=== PATIENT | female | born 1960 | race Native Hawaiian/Other Pacific Islander ===

== ENCOUNTER 2019-04-22 12:37 | Emergency (ER) | payer SELFPAY ==
--- NOTE | 2019-04-22 12:45 | Emergency Department Report ---
Blank Doc - Documentation Documentation: 58-year-old female that presents with abdominal pain with n/v. This initial assessment/diagnostic orders/clinical plan/treatment(s) is/are subject to change based on patient's health status, clinical progression and re- assessment by fellow clinical providers in the ED. Further treatment and workup at subsequent clinical providers discretion. Patient/guardians urged not to elope from the ED as their condition may be serious if not clinically assessed and managed. Initial orders include: 1- Patient sent to [facility] for further evaluation and treatment 2- labs 3- UA
[2019-04-22 13:11] LABS: Basophils # (Auto) 0.1 K/mm3 (0.0-0.1); Eosinophils # (Auto) 0.2 K/mm3 (0.0-0.4); Hematocrit 39.2 % (30.3-42.9); Hemoglobin 13.8 gm/dl (10.1-14.3); Lymphocytes # (Auto) 1.9 K/mm3 (1.2-5.4); Lymphocytes % (Auto) 33.6 % (13.4-35.0); Mean Corpuscular HGB Conc 35 % (30-34); Mean Corpuscular Volume 91 fl (79-97); Monocytes # (Auto) 0.3 K/mm3 (0.0-0.8); Monocytes % (Auto) 5.2 % (0.0-7.3); Platelet Count 249 K/mm3 (140-440); Red Blood Count 4.33 M/mm3 (3.65-5.03); Red Cell Distribution Width 13.1 % (13.2-15.2)
[2019-04-22 13:21] LABS: INR 1.04 (0.87-1.13)
[2019-04-22 13:40] LABS: Alanine Aminotransferase 34 units/L (7-56); Albumin 4.2 g/dL (3.9-5); BUN/Creatinine Ratio 18; Blood Urea Nitrogen 9 mg/dL (7-17); Calcium 9.1 mg/dL (8.4-10.2); Hemolysis Index 11
[2019-04-22 13:49] LABS: Bilirubin,Urine NEG (Negative); Blood,Urine NEG (Negative); Color,Urine Straw (Yellow); Mucus,Urine FEW /HPF; Protein,Urine <15 mg/dL mg/dL (Negative); Urobilinogen,Urine < 2.0 mg/dL (<2.0); WBC,Urine < 1.0 /HPF (0.0-6.0)
[2019-04-22] MEDS ORDERED: ONDANSETRON 4 MG/2 ML INJ IV ONE (14:40)
[2019-04-22] MEDS ORDERED: SODIUM CHLORIDE 0.9% 1000 ML 1,000 ML IV ONE (14:40)
[2019-04-22] MEDS ORDERED: FAMOTIDINE 20 MG/2 ML INJ IV ONE (14:40)
--- NOTE | 2019-04-22 16:24 | Cat Scan Report ---
CT ABDOMEN AND PELVIS WITH CONTRAST HISTORY: MAIN: NVD diffuse abd pain COMPARISON: None. TECHNIQUE: Axial CT images were obtained through the abdomen and pelvis after 100 cc of Omnipaque 300 intravenously. Sagittal and coronal reformatted images. All CT scans at this location are performed using CT dose reduction for ALARA by means of automated exposure control. FINDINGS: CT ABDOMEN: Lung Bases: Clear. Liver: Mild diffuse fatty infiltration throughout the liver. No mass or enlargement. Biliary: No significant abnormality. Spleen: No significant abnormality. Unenlarged. Pancreas: No significant abnormality. Adrenals: No significant abnormality. Kidneys: No significant abnormality. Lymphatics: No lymphadenopathy. Vasculature: No significant abnormality. Bowel/Peritoneum: No significant abnormality. No free air. No free fluid. Normal appendix. CT PELVIS: : Hysterectomy changes are suspected. No pelvic cyst or mass. Osseous Structures: No significant abnormality. Additional Findings: Previous ventral wall hernia repair appears intact. IMPRESSION: No acute abdominal process is identified. Mild hepatic steatosis. Surgical changes as described. Signer Name: John Gregg Jr, MD Signed: 04/22/2019 4:20 PM Workstation Name: [id number]
--- NOTE | 2019-04-22 17:16 | Emergency Department Report ---
ED Abdominal Pain HPI - General Chief Complaint: GI Bleed Stated Complaint: ABD PAIN Time Seen by Provider: 04/22/19 12:44 Source: patient Mode of arrival: Ambulatory Limitations: No Limitations - History of Present Illness Initial Comments: Patient is a 58-year-old female who is presenting with nausea vomiting and abdominal pain. Patient says most of her abdominal pain is in the epigastrium however she has some generalized pain she states everywhere in her abdomen". The patient states that the pain started 3 days ago. She states she started having some nausea vomiting. The first episode of vomiting appeared to be food content but now she is having some streaks of blood in her vomit. Patient had episode of diarrhea as well but this is now resolved. Location: diffuse, epigastric Severity: moderate Severity scale (0 -10): 6 Quality: cramping Improves With: nothing Worsens With: nothing Associated Symptoms: nausea, vomiting, diarrhea (x1). denies: dysuria, hematochezia, melena, hematuria, anorexia - Related Data Previous Rx's Medication Instructions Recorded Last Taken Type Amitriptyline [Elavil] 10 mg PO QHS #30 tab NS 02/17/14 Unknown Rx Aspirin [Aspirin BABY CHEW TAB] 81 mg PO QDAY #20 tab.chew 02/17/14 Unknown Rx Butalb/Acetamin/Caff 50-325-40 1 each PO Q6H PRN #30 tablet NS 02/17/14 Unknown Rx [Fioricet] Simvastatin 10 mg PO QHS #30 tablet 02/17/14 Unknown Rx oxyCODONE /ACETAMINOPHEN [Percocet 1 tab PO Q6HR PRN #20 tablet 02/17/15 Unknown Rx 5/325] Dicyclomine [Bentyl] 20 mg PO QID #10 tablet 04/22/19 Unknown Rx Ondansetron [Zofran Odt] 4 mg PO Q8HR #10 tab.rapdis 04/22/19 Unknown Rx Pantoprazole [Protonix] 40 mg PO QDAY #30 tablet 04/22/19 Unknown Rx traMADoL [Ultram] 50 mg PO Q6HR PRN #12 tablet 04/22/19 Unknown Rx Allergies Allergy/AdvReac Type Severity Reaction Status Date / Time No Known Allergies Allergy Verified 02/15/14 09:51 ED Review of Systems ROS: Stated complaint: ABD PAIN Other details as noted in HPI Comment: All other systems reviewed and negative ED Past Medical Hx - Past Medical History Previous Medical History?: Yes Hx CVA: Yes (2013) Hx Diabetes: Yes Hx GERD: Yes Hx Headaches / Migraines: Yes - Surgical History Past Surgical History?: Yes Additional Surgical History: Hysterectomy - Social History Smoking Status: Never Smoker Substance Use Type: None - Medications Home Medications: Home Medications Medication Instructions Recorded Confirmed Last Taken Type Amitriptyline [Elavil] 10 mg PO QHS #30 tab NS 02/17/14 Unknown Rx Aspirin [Aspirin BABY CHEW TAB] 81 mg PO QDAY #20 tab.chew 02/17/14 Unknown Rx Butalb/Acetamin/Caff 50-325-40 1 each PO Q6H PRN #30 tablet NS 02/17/14 Unknown Rx [Fioricet] Simvastatin 10 mg PO QHS #30 tablet 02/17/14 Unknown Rx oxyCODONE /ACETAMINOPHEN [Percocet 1 tab PO Q6HR PRN #20 tablet 02/17/15 Unknown Rx 5/325] Dicyclomine [Bentyl] 20 mg PO QID #10 tablet 04/22/19 Unknown Rx Ondansetron [Zofran Odt] 4 mg PO Q8HR #10 tab.rapdis 04/22/19 Unknown Rx Pantoprazole [Protonix] 40 mg PO QDAY #30 tablet 04/22/19 Unknown Rx traMADoL [Ultram] 50 mg PO Q6HR PRN #12 tablet 04/22/19 Unknown Rx ED Physical Exam - General Limitations: No Limitations General appearance: alert, in no apparent distress - Head Head exam: Present: atraumatic, normocephalic - Eye Eye exam: Present: normal appearance, PERRL, EOMI - ENT ENT exam: Present: mucous membranes moist - Neck Neck exam: Present: normal inspection - Respiratory Respiratory exam: Present: normal lung sounds bilaterally. Absent: respiratory distress, wheezes, rales, rhonchi - Cardiovascular Cardiovascular Exam: Present: regular rate, normal rhythm, normal heart sounds. Absent: systolic murmur, diastolic murmur, rubs, gallop - GI/Abdominal GI/Abdominal exam: Present: soft, tenderness (diffuse), normal bowel sounds. Absent: distended, guarding, rebound - Rectal Rectal exam: Present: normal inspection, heme (-) stool - Extremities Exam Extremities exam: Present: normal inspection - Back Exam Back exam: Present: normal inspection - Neurological Exam Neurological exam: Present: alert, oriented X3 - Psychiatric Psychiatric exam: Present: normal affect, normal mood - Skin Skin exam: Present: warm, dry, intact, normal color. Absent: rash ED Course Vital Signs 04/22/19 12:45 Temperature 97.7 F Pulse Rate 72 Respiratory 18 Rate Blood Pressure 140/51 O2 Sat by Pulse 97 Oximetry ED Medical Decision Making - Lab Data Result diagrams: 04/22/19 12:57 04/22/19 12:57 Lab Results 04/22/19 04/22/19 04/22/19 Range/Units 12:57 12:57 12:57 WBC 5.6 (4.5-11.0) K/mm3 RBC 4.33 (3.65-5.03) M/mm3 Hgb 13.8 (10.1-14.3) gm/dl Hct 39.2 (30.3-42.9) % MCV 91 (79-97) fl MCH 32 (28-32) pg MCHC 35 H (30-34) % RDW 13.1 L (13.2-15.2) % Plt Count 249 (140-440) K/mm3 Lymph % (Auto) 33.6 (13.4-35.0) % [place] % (Auto) 5.2 (0.0-7.3) % Eos % (Auto) 3.0 (0.0-4.3) % Baso % (Auto) 1.0 (0.0-1.8) % Lymph # 1.9 (1.2-5.4) K/mm3 [place] # 0.3 (0.0-0.8) K/mm3 Eos # 0.2 (0.0-0.4) K/mm3 Baso # 0.1 (0.0-0.1) K/mm3 Seg Neutrophils % 57.2 (40.0-70.0) % Seg Neutrophils # 3.2 (1.8-7.7) K/mm3 PT 13.5 (12.2-14.9) Sec. INR 1.04 (0.87-1.13) APTT 33.0 (24.2-36.6) Sec. Sodium 143 (137-145) mmol/L Potassium 4.2 (3.6-5.0) mmol/L Chloride 104.0 (98-107) mmol/L Carbon Dioxide 24 (22-30) mmol/L Anion Gap 19 mmol/L BUN 9 (7-17) mg/dL Creatinine 0.5 L (0.7-1.2) mg/dL Estimated GFR > 60 ml/min BUN/Creatinine Ratio 18 % Glucose 140 H (65-100) mg/dL Calcium 9.1 (8.4-10.2) mg/dL Total Bilirubin 0.70 (0.1-1.2) mg/dL AST 25 (5-40) units/L ALT 34 (7-56) units/L Alkaline Phosphatase 97 (35-129) units/L Total Protein 7.7 (6.3-8.2) g/dL Albumin 4.2 (3.9-5) g/dL Albumin/Globulin Ratio 1.2 % Lipase 25 (13-60) units/L Urine Color (Yellow) Urine Turbidity (Clear) Urine pH (5.0-7.0) Ur Specific [place] (1.003-1.030) Urine Protein (Negative) mg/dL Urine Glucose (UA) (Negative) mg/dL Urine Ketones (Negative) mg/dL Urine Blood (Negative) Urine Nitrite (Negative) Urine Bilirubin (Negative) Urine Urobilinogen (<2.0) mg/dL Ur Leukocyte Esterase (Negative) Urine WBC (Auto) (0.0-6.0) /HPF Urine RBC (Auto) (0.0-6.0) /HPF U Epithel Cells (Auto) (0-13.0) /HPF Urine Mucus /HPF 04/22/19 Range/Units 13:21 WBC (4.5-11.0) K/mm3 RBC (3.65-5.03) M/mm3 Hgb (10.1-14.3) gm/dl Hct (30.3-42.9) % MCV (79-97) fl MCH (28-32) pg MCHC (30-34) % RDW (13.2-15.2) % Plt Count (140-440) K/mm3 Lymph % (Auto) (13.4-35.0) % [place] % (Auto) (0.0-7.3) % Eos % (Auto) (0.0-4.3) % Baso % (Auto) (0.0-1.8) % Lymph # (1.2-5.4) K/mm3 [place] # (0.0-0.8) K/mm3 Eos # (0.0-0.4) K/mm3 Baso # (0.0-0.1) K/mm3 Seg Neutrophils % (40.0-70.0) % Seg Neutrophils # (1.8-7.7) K/mm3 PT (12.2-14.9) Sec. INR (0.87-1.13) APTT (24.2-36.6) Sec. Sodium (137-145) mmol/L Potassium (3.6-5.0) mmol/L Chloride (98-107) mmol/L Carbon Dioxide (22-30) mmol/L Anion Gap mmol/L BUN (7-17) mg/dL Creatinine (0.7-1.2) mg/dL Estimated GFR ml/min BUN/Creatinine Ratio % Glucose (65-100) mg/dL Calcium (8.4-10.2) mg/dL Total Bilirubin (0.1-1.2) mg/dL AST (5-40) units/L ALT (7-56) units/L Alkaline Phosphatase (35-129) units/L Total Protein (6.3-8.2) g/dL Albumin (3.9-5) g/dL Albumin/Globulin Ratio % Lipase (13-60) units/L Urine Color Straw (Yellow) Urine Turbidity Clear (Clear) Urine pH 7.0 (5.0-7.0) Ur Specific [place] 1.006 (1.003-1.030) Urine Protein <15 mg/dl (Negative) mg/dL Urine Glucose (UA) Neg (Negative) mg/dL Urine Ketones Neg (Negative) mg/dL Urine Blood Neg (Negative) Urine Nitrite Neg (Negative) Urine Bilirubin Neg (Negative) Urine Urobilinogen < 2.0 (<2.0) mg/dL Ur Leukocyte Esterase Neg (Negative) Urine WBC (Auto) < 1.0 (0.0-6.0) /HPF Urine RBC (Auto) 2.0 (0.0-6.0) /HPF U Epithel Cells (Auto) 2.0 (0-13.0) /HPF Urine Mucus Few /HPF - Radiology Data CT ABDOMEN AND PELVIS WITH CONTRAST HISTORY: MAIN: NVD diffuse abd pain COMPARISON: None. TECHNIQUE: Axial CT images were obtained through the abdomen and pelvis after 100 cc of Omnipaque 300 intravenously. Sagittal and coronal reformatted images. All CT scans at this location are performed using CT dose reduction for ALARA by means of automated exposure control. FINDINGS: CT ABDOMEN: Lung Bases: Clear. Liver: Mild diffuse fatty infiltration throughout the liver. No mass or enlargement. Biliary: No significant abnormality. Spleen: No significant abnormality. Unenlarged. Pancreas: No significant abnormality. Adrenals: No significant abnormality. Kidneys: No significant abnormality. Lymphatics: No lymphadenopathy. Vasculature: No significant abnormality. Bowel/Peritoneum: No significant abnormality. No free air. No free fluid. Normal appendix. CT PELVIS: : Hysterectomy changes are suspected. No pelvic cyst or mass. Osseous Structures: No significant abnormality. Additional Findings: Previous ventral wall hernia repair appears intact. IMPRESSION: No acute abdominal process is identified. Mild hepatic steatosis. Surgical changes as described. Signer Name: John Gregg Jr, MD Signed: 04/22/2019 4:20 PM Workstation Name: [id number] - Medical Decision Making Patient was hydrated and given medications for symptomatic relief. Her nausea and pain have improved. Patient's CT is not showing any acute surgical abnormality. R studies are unremarkable. Patient likely is having a flareup of her gastritis. Patient will be started on meds and given GI for follow-up and the patient be discharged home. Critical care attestation.: If time is entered above; I have spent that time in minutes in the direct care of this critically ill patient, excluding procedure time. ED Disposition Clinical Impression: Gastritis Qualifiers: Gastritis type: unspecified gastritis Chronicity: acute Gastritis bleeding: with bleeding Qualified Code(s): K29.01 - Acute gastritis with bleeding Disposition: - TO HOME OR SELFCARE Is pt being admited?: No Does the pt Need Aspirin: No Condition: Stable Instructions: Gastritis (ED), Diet for Ulcers and Gastritis (ED) Referrals: [facility] [Provider Group] - 3-5 Days Time of Disposition: 17:17
[2019-04-22 17:35] VITALS: BP 124/60
== END 2019-04-22 17:34 | disposition home or self-care (01) ==
LOC: ED 12:37
DX: K29.00 Acute gastritis without bleeding (principal); E11.9 Type 2 diabetes mellitus without complications; K21.9 Gastro-esophageal reflux disease without esophagitis; G43.909 Migraine, unspecified, not intractable, without status migrainosus
CPT/HCPCS: 36415; 74177; 80053; 81001; 83690; 85025; 85610; 85730; 96361; 96374; 96375; 99284; J2405; J7030; Q9967

== ENCOUNTER 2020-02-01 14:31 | Emergency (ER) | payer SELFPAY ==
--- NOTE | 2020-02-01 16:50 | Emergency Department Report ---
Blank Doc - Documentation Documentation: 59-year-old female that presents with diarrhea, body aches, cough, chills, sub jective fever, with nausea and vomiting. This initial assessment/diagnostic orders/clinical plan/treatment(s) is/are subject to change based on patient's health status, clinical progression and re-assessment by fellow clinical providers in the ED. Further treatment and workup at subsequent clinical providers discretion. Patient/guardians urged not to elope from the ED as their condition may be serious if not clinically assessed and managed. Initial orders include: 1- Patient sent to [facility] for further evaluation and treatment 2- labs 3- CXR
[2020-02-01 17:14] LABS: Basophils % (Auto) 0.6 % (0.0-1.8); Eosinophils # (Auto) 0.2 K/mm3 (0.0-0.4); Hematocrit 39.9 % (30.3-42.9); Hemoglobin 13.9 gm/dl (10.1-14.3); Mean Corpuscular HGB Conc 35 % (30-34); Mean Corpuscular Volume 92 fl (79-97); Monocytes # (Auto) 0.3 K/mm3 (0.0-0.8); Monocytes % (Auto) 5.4 % (0.0-7.3); Platelet Count 231 K/mm3 (140-440); Red Blood Count 4.32 M/mm3 (3.65-5.03); Red Cell Distribution Width 13.3 % (13.2-15.2)
--- NOTE | 2020-02-01 17:22 | XRay Report ---
XR chest routine 2V INDICATION / CLINICAL INFORMATION: cough. COMPARISON: None available. FINDINGS: SUPPORT DEVICES: None. HEART / MEDIASTINUM: No significant abnormality. LUNGS / PLEURA: Lungs are clear. Costophrenic sulci are sharp. No pneumothorax. ADDITIONAL FINDINGS: No significant additional findings. IMPRESSION: 1. No acute findings. Signer Name: Dieter Matias MD Signed: 02/01/2020 5:18 PM Workstation Name: [id number]
[2020-02-01 17:25] LABS: Blood Urea Nitrogen 9 mg/dL (7-17); Hemolysis Index 6
[2020-02-01 17:27] LABS: BUN/Creatinine Ratio 13
[2020-02-01 19:01] LABS: Bacteria,Urine 1+ /HPF (Negative); Bilirubin,Urine NEG (Negative); Blood,Urine NEG (Negative); Color,Urine Yellow (Yellow); Mucus,Urine 3+ /HPF; Protein,Urine <15 mg/dL mg/dL (Negative); Urobilinogen,Urine < 2.0 mg/dL (<2.0)
--- NOTE | 2020-02-01 20:17 | Emergency Department Report ---
ED General Adult HPI - General Chief complaint: Upper Respiratory Infection Stated complaint: HEAD,DIARREHA,CHEST PAIN Time Seen by Provider: 02/01/20 16:48 Source: patient Mode of arrival: Ambulatory Limitations: No Limitations - History of Present Illness Initial comments: 59-year-old female presents to ED with headache, chills, nausea, diarrhea, body aches, burning to feet. Patient states her symptoms have been ongoing x1 month. Patient had a negative COVID-19 test on 12/22/2019. Patient reports her son, who lives with her, tested positive for COVID-19 01/12/2020. Patient states she had another test 4 days ago that was negative for COVID-19. Patient denies cough, shortness of breath. -: month(s) (1) Location: head, left, right, lower extremity Consistency: constant Improves with: none Worsens with: none Associated Symptoms: fever/chills, headaches. denies: cough, nausea/vomiting, shortness of breath - Related Data Previous Rx's Medication Instructions Recorded Last Taken Type Amitriptyline [Elavil] 10 mg PO QHS #30 tab NS 02/17/14 Unknown Rx Aspirin [Aspirin BABY CHEW TAB] 81 mg PO QDAY #20 tab.chew 02/17/14 Unknown Rx Butalb/Acetamin/Caff 50-325-40 1 each PO Q6H PRN #30 tablet NS 02/17/14 Unknown Rx [Fioricet] Simvastatin 10 mg PO QHS #30 tablet 02/17/14 Unknown Rx oxyCODONE /ACETAMINOPHEN [Percocet 1 tab PO Q6HR PRN #20 tablet 02/17/15 Unknown Rx 5/325] Dicyclomine [Bentyl] 20 mg PO QID #10 tablet 04/22/19 Unknown Rx Ondansetron [Zofran Odt] 4 mg PO Q8HR #10 tab.rapdis 04/22/19 Unknown Rx Pantoprazole [Protonix] 40 mg PO QDAY #30 tablet 04/22/19 Unknown Rx traMADoL [Ultram] 50 mg PO Q6HR PRN #12 tablet 04/22/19 Unknown Rx traMADoL [Ultram] 50 mg PO Q6HR PRN #7 tablet 02/01/20 Unknown Rx Allergies Allergy/AdvReac Type Severity Reaction Status Date / Time No Known Allergies Allergy Verified 02/15/14 09:51 ED Review of Systems ROS: Stated complaint: HEAD,DIARREHA,CHEST PAIN Other details as noted in HPI Comment: All other systems reviewed and negative Constitutional: chills. denies: fever Respiratory: denies: cough, shortness of breath Gastrointestinal: nausea, diarrhea. denies: vomiting Neurological: paresthesias (Burning to bilateral feet) ED Past Medical Hx - Past Medical History Previous Medical History?: Yes Hx CVA: Yes (2013) Hx Diabetes: Yes Hx GERD: Yes Hx Headaches / Migraines: Yes - Surgical History Past Surgical History?: Yes Additional Surgical History: Hysterectomy - Social History Smoking Status: Never Smoker Substance Use Type: None - Medications Home Medications: Home Medications Medication Instructions Recorded Confirmed Last Taken Type Amitriptyline [Elavil] 10 mg PO QHS #30 tab NS 02/17/14 Unknown Rx Aspirin [Aspirin BABY CHEW TAB] 81 mg PO QDAY #20 tab.chew 02/17/14 Unknown Rx Butalb/Acetamin/Caff 50-325-40 1 each PO Q6H PRN #30 tablet NS 02/17/14 Unknown Rx [Fioricet] Simvastatin 10 mg PO QHS #30 tablet 02/17/14 Unknown Rx oxyCODONE /ACETAMINOPHEN [Percocet 1 tab PO Q6HR PRN #20 tablet 02/17/15 Unknown Rx 5/325] Dicyclomine [Bentyl] 20 mg PO QID #10 tablet 04/22/19 Unknown Rx Ondansetron [Zofran Odt] 4 mg PO Q8HR #10 tab.rapdis 04/22/19 Unknown Rx Pantoprazole [Protonix] 40 mg PO QDAY #30 tablet 04/22/19 Unknown Rx traMADoL [Ultram] 50 mg PO Q6HR PRN #12 tablet 04/22/19 Unknown Rx traMADoL [Ultram] 50 mg PO Q6HR PRN #7 tablet 02/01/20 Unknown Rx ED Physical Exam - General Limitations: No Limitations General appearance: alert, in no apparent distress - Head Head exam: Present: atraumatic, normocephalic - Eye Eye exam: Present: normal appearance, EOMI - ENT ENT exam: Present: mucous membranes moist - Neck Neck exam: Present: normal inspection - Respiratory Respiratory exam: Present: normal lung sounds bilaterally. Absent: respiratory distress - Cardiovascular Cardiovascular Exam: Present: regular rate, normal rhythm - GI/Abdominal GI/Abdominal exam: Present: soft. Absent: distended - Extremities Exam Extremities exam: Present: normal inspection - Neurological Exam Neurological exam: Present: alert, oriented X3 - Psychiatric Psychiatric exam: Present: normal affect, normal mood - Skin Skin exam: Present: warm, dry, intact, normal color ED Course Vital Signs 02/01/20 14:34 Temperature 98.1 F Pulse Rate 59 L Respiratory 16 Rate Blood Pressure 121/55 [Right] O2 Sat by Pulse 99 Oximetry ED Medical Decision Making - Lab Data Result diagrams: 02/01/20 16:53 02/01/20 16:53 - Radiology Data Radiology results: report reviewed, image reviewed - Medical Decision Making 59-year-old female with headache, chills, nausea, diarrhea, body aches, burning to feet. Patient reports her son tested positive for COVID-19. Patient has personally tested negative for COVID-19 twice, as recently as 4 days ago. O2 sats are normal, patient is in no respiratory distress. Patient will be discharged at this time. Outpatient follow-up advised. Return precautions given. - Differential Diagnosis Pneumonia, COVID-19, diabetic neuropathy Critical care attestation.: If time is entered above; I have spent that time in minutes in the direct care of this critically ill patient, excluding procedure time. ED Disposition Clinical Impression: Viral syndrome Disposition: DC-01 TO HOME OR SELFCARE Is pt being admited?: No Condition: Stable Instructions: COVID-19, Viral Syndrome (ED) Prescriptions: traMADoL [Ultram] 50 mg PO Q6HR PRN #7 tablet PRN Reason: Pain Referrals: PRIMARY CARE, [Primary Care Provider] - 3-5 Days Time of Disposition: 20:20
[2020-02-02 01:43] VITALS: BP 126/67
== END 2020-02-01 20:45 | disposition home or self-care (01) ==
LOC: ED 14:31
DX: B34.9 Viral infection, unspecified (principal); K21.9 Gastro-esophageal reflux disease without esophagitis; E11.9 Type 2 diabetes mellitus without complications; G43.909 Migraine, unspecified, not intractable, without status migrainosus; Z90.710 Acquired absence of both cervix and uterus; Z79.899 Other long term (current) drug therapy; Z86.73 Personal history of transient ischemic attack (TIA), and cerebral infarction without residual deficits
CPT/HCPCS: 36415; 71046; 80048; 81001; 85025

== ENCOUNTER 2022-01-30 13:51 | Emergency (ER) | payer SELFPAY ==
--- NOTE | 2022-01-30 14:22 | Emergency Department Report ---
ED Abdominal Pain HPI - General Stated Complaint: ABD PAIN PUI?: No Time Seen by Provider: 01/30/22 14:18 Source: patient Mode of arrival: Ambulatory Limitations: Language Barrier - History of Present Illness Initial Comments: 61 yo comes to ER with lower abd pain. Saw Dr in [place] today she was told she had an ovarian cysts/ constipation The PCP told her to come here- no tests done had BM this AM that was painful hx DM rx metformin MD Complaint: abdominal pain - Related Data Previous Rx's Medication Instructions Recorded Last Taken Type Amitriptyline [Elavil] 10 mg PO QHS #30 tab NS 02/17/14 Unknown Rx Aspirin [Aspirin BABY CHEW TAB] 81 mg PO QDAY #20 tab.chew 02/17/14 Unknown Rx Butalb/Acetamin/Caff 50-325-40 1 each PO Q6H PRN #30 tablet NS 02/17/14 Unknown Rx [Fioricet] Simvastatin 10 mg PO QHS #30 tablet 02/17/14 Unknown Rx oxyCODONE /ACETAMINOPHEN [Percocet 1 tab PO Q6HR PRN #20 tablet 02/17/15 Unknown Rx 5/325] Dicyclomine [Bentyl] 20 mg PO QID #10 tablet 04/22/19 Unknown Rx Ondansetron [Zofran Odt] 4 mg PO Q8HR #10 tab.rapdis 04/22/19 Unknown Rx Pantoprazole [Protonix] 40 mg PO QDAY #30 tablet 04/22/19 Unknown Rx traMADoL [Ultram] 50 mg PO Q6HR PRN #12 tablet 04/22/19 Unknown Rx traMADoL [Ultram] 50 mg PO Q6HR PRN #7 tablet 02/01/20 Unknown Rx Allergies Allergy/AdvReac Type Severity Reaction Status Date / Time No Known Allergies Allergy Verified 02/15/14 09:51 ED Review of Systems ROS: Stated complaint: ABD PAIN Other details as noted in HPI Comment: All other systems reviewed and negative ED Past Medical Hx - Past Medical History Previous Medical History?: Yes Hx CVA: Yes (2013) Hx Diabetes: Yes Hx GERD: Yes Hx Headaches / Migraines: Yes - Surgical History Past Surgical History?: Yes Additional Surgical History: Hysterectomy - Family History Family history: no significant - Social History Smoking Status: Never Smoker Substance Use Type: None - Medications Home Medications: Home Medications Medication Instructions Recorded Confirmed Last Taken Type Amitriptyline [Elavil] 10 mg PO QHS #30 tab NS 02/17/14 Unknown Rx Aspirin [Aspirin BABY CHEW TAB] 81 mg PO QDAY #20 tab.chew 02/17/14 Unknown Rx Butalb/Acetamin/Caff 50-325-40 1 each PO Q6H PRN #30 tablet NS 02/17/14 Unknown Rx [Fioricet] Simvastatin 10 mg PO QHS #30 tablet 02/17/14 Unknown Rx oxyCODONE /ACETAMINOPHEN [Percocet 1 tab PO Q6HR PRN #20 tablet 02/17/15 Unknown Rx 5/325] Dicyclomine [Bentyl] 20 mg PO QID #10 tablet 04/22/19 Unknown Rx Ondansetron [Zofran Odt] 4 mg PO Q8HR #10 tab.rapdis 04/22/19 Unknown Rx Pantoprazole [Protonix] 40 mg PO QDAY #30 tablet 04/22/19 Unknown Rx traMADoL [Ultram] 50 mg PO Q6HR PRN #12 tablet 04/22/19 Unknown Rx traMADoL [Ultram] 50 mg PO Q6HR PRN #7 tablet 02/01/20 Unknown Rx ED Physical Exam - General Limitations: No Limitations General appearance: alert, in no apparent distress - Head Head exam: Present: atraumatic, normocephalic - Eye Eye exam: Present: normal appearance - ENT ENT exam: Present: mucous membranes moist - Neck Neck exam: Present: normal inspection - Respiratory Respiratory exam: Present: normal lung sounds bilaterally. Absent: respiratory distress - Cardiovascular Cardiovascular Exam: Present: regular rate, normal rhythm. Absent: systolic murmur, diastolic murmur, rubs, gallop - GI/Abdominal GI/Abdominal exam: Present: soft, normal bowel sounds - Extremities Exam Extremities exam: Present: normal inspection - Back Exam Back exam: Present: normal inspection - Neurological Exam Neurological exam: Present: alert, oriented X3 - Psychiatric Psychiatric exam: Present: normal affect, normal mood - Skin Skin exam: Present: warm, dry, intact, normal color. Absent: rash Critical care attestation.: If time is entered above; I have spent that time in minutes in the direct care of this critically ill patient, excluding procedure time. ED Disposition Clinical Impression: Abdominal pain Disposition: 30 STILL A PATIENT Is pt being admited?: No Does the pt Need Aspirin: No Condition: Stable
[2022-01-30 14:23] VITALS: BP 140/75
[2022-01-30 15:01] LABS: Basophils % (Auto) 0.6 % (0.0-1.8); Eosinophils # (Auto) 0.2 K/mm3 (0.0-0.4); Lymphocytes # (Auto) 1.7 K/mm3 (1.2-5.4); Lymphocytes % (Auto) 28.8 % (13.4-35.0); Mean Corpuscular HGB Conc 36 % (30-34); Mean Corpuscular Volume 90 fl (79-97); Monocytes # (Auto) 0.3 K/mm3 (0.0-0.8); Platelet Count 234 K/mm3 (140-440); Red Blood Count 4.28 M/mm3 (3.65-5.03); Red Cell Distribution Width 12.9 % (13.2-15.2)
[2022-01-30 15:08] LABS: Hematocrit 38.7 % (30.3-42.9)
[2022-01-30 15:17] LABS: Alanine Aminotransferase 14 units/L (7-56); Albumin 4.8 g/dL (3.9-5); Blood Urea Nitrogen 16 mg/dL (7-17); Calcium 9.6 mg/dL (8.4-10.2); Hemolysis Index 23
[2022-01-30 15:18] LABS: BUN/Creatinine Ratio 23; Bilirubin,Direct < 0.2 mg/dL (0-0.2)
== END 2022-02-01 14:26 | disposition still patient (30) ==
LOC: ED 13:51
DX: R10.30 Lower abdominal pain, unspecified (principal); E11.9 Type 2 diabetes mellitus without complications; K21.9 Gastro-esophageal reflux disease without esophagitis; G43.909 Migraine, unspecified, not intractable, without status migrainosus; Z90.710 Acquired absence of both cervix and uterus; Z98.890 Other specified postprocedural states; Z79.899 Other long term (current) drug therapy; Z79.82 Long term (current) use of aspirin
CPT/HCPCS: 36415; 80048; 80076; 83690; 85025; 99283